=== PATIENT | female | born 1995 | race Asian ===

== ENCOUNTER 2016-12-16 11:36 | Emergency (ER) | payer OTHER ==
[~2016-12-16] VITALS: Ht 157.5 cm; Wt 47.5 kg
[~2016-12-16 11:36] MED LIST: DSS100 PO; IBUP-2070 PO; PERCT PO; PREN-64 PO
[2016-12-16] MEDS ORDERED: FAMOTIDINE 20 MG TABLET PO ONE (12:45)
[2016-12-16 12:55] VITALS: BP 104/68
[2016-12-16 13:00] LABS: BASOPHILS # (AUTO) 0.03 K/uL (0.00-0.20); BASOPHILS % (AUTO) 0.5 % (0.0-2.0); EOSINOPHILS # (AUTO) 0.38 K/uL (0.00-0.70); EOSINOPHILS % (AUTO) 7.28 % (1.0-6.0); HEMATOCRIT 45.4 % (36-46); LYMPHOCYTES # (AUTO) 1.8 K/uL (1.0-4.8); LYMPHOCYTES % (AUTO) 35.3 % (22.0-44.0); MEAN CORPUSCULAR HEMOGLOBIN 31.5 pg (26.0-34.0); MEAN CORPUSCULAR HGB CONC 33.1 G/dL (31.0-37.0); MEAN CORPUSCULAR VOLUME 95 fL (80-100); MONOCYTES # (AUTO) 0.3 K/uL (0.1-1.0); NEUTROPHILS # (AUTO) 2.7 K/uL (1.8-7.7); NEUTROPHILS % (AUTO) 51.9 % (40.0-70.0); PLATELET COUNT (AUTO) 151 K/uL (150-450); RED BLOOD CELL COUNT(AUTO) 4.77 MIL/uL (4.00-5.20); WHITE BLOOD COUNT (AUTO) 5.2 K/uL (4.5-11.0)
[2016-12-16 13:14] LABS: ANION GAP 11 mmol/L (8-16); CALCIUM, TOTAL 9.2 mg/dL (8.8-10.5); CARBON DIOXIDE 28 mmol/L (22-29); CHLORIDE 103 mmol/L (98-107); GLOMERULAR FILTR. RATE CALC > 60 mL/min (>60); POTASSIUM 3.6 mmol/L (3.5-5.1); SODIUM SERUM 142 mmol/L (136-145); UREA NITROGEN, BLOOD 10 mg/dL (7-18)
[2016-12-16 13:22] LABS: ALANINE AMINOTRANSFERASE 15 U/L (12-78); ALBUMIN 4.5 g/dL (3.4-5.0); ASPARTATE AMINOTRANSFERASE 16 U/L (15-37); BILIRUBIN,TOTAL 1.1 mg/dL (0.1-1.0); CREATINE KINASE, TOTAL 69 U/L (26-192); TOTAL PROTEIN, SERUM 7.6 g/dL (6.4-8.2)
== END 2016-12-16 13:37 | disposition left against medical advice (07) ==
LOC: EMS 11:38
DX: R10.13 Epigastric pain (principal)
CPT/HCPCS: 93005; 99285

== ENCOUNTER 2016-12-22 10:31 | Emergency (ER) | payer OTHER ==
[~2016-12-22] VITALS: Ht 157.5 cm; Wt 47.7 kg
[2016-12-22 11:06] LABS: BASOPHILS % (AUTO) 0.5 % (0.0-2.0); EOSINOPHILS % (AUTO) 1.6 % (1.0-6.0); HEMATOCRIT 44.3 % (36-46); HEMOGLOBIN 15.3 g/dL (12.0-16.0); LYMPHOCYTES # (AUTO) 1.7 K/uL (1.0-4.8); MEAN CORPUSCULAR HGB CONC 34.5 G/dL (31.0-37.0); MEAN CORPUSCULAR VOLUME 93 fL (80-100); MONOCYTES # (AUTO) 0.4 K/uL (0.1-1.0); MONOCYTES % (AUTO) 4.5 % (2.0-9.0); NEUTROPHILS # (AUTO) 5.5 K/uL (1.8-7.7); NEUTROPHILS % (AUTO) 71.4 % (40.0-70.0); PLATELET COUNT (AUTO) 202 K/uL (150-450); RED BLOOD CELL COUNT(AUTO) 4.78 MIL/uL (4.00-5.20); WHITE BLOOD COUNT (AUTO) 7.8 K/uL (4.5-11.0)
[2016-12-22 11:14] LABS: ANION GAP 19 mmol/L (8-16); CALCIUM, TOTAL 9.4 mg/dL (8.8-10.5); CARBON DIOXIDE 24 mmol/L (22-29); CHLORIDE 100 mmol/L (98-107); CREATININE 0.78 mg/dL (0.60-1.30); GLOMERULAR FILTR. RATE CALC > 60 mL/min (>60); POTASSIUM 3.3 mmol/L (3.5-5.1); SODIUM SERUM 143 mmol/L (136-145); UREA NITROGEN, BLOOD 14 mg/dL (7-18)
[2016-12-22 11:20] LABS: ALANINE AMINOTRANSFERASE 20 U/L (12-78); ALBUMIN 4.6 g/dL (3.4-5.0); AMYLASE 59 U/L (25-115); ASPARTATE AMINOTRANSFERASE 27 U/L (15-37); TOTAL PROTEIN, SERUM 7.9 g/dL (6.4-8.2)
[2016-12-22] MEDS ORDERED: SODIUM CHLORIDE 0.9% 1,000 ML IV ONE (12:30)
[2016-12-22] MEDS ORDERED: ONDANSETRON HCL 4 MG/2 ML VIAL IVP ONE (12:30)
[2016-12-22 14:59] LABS: APPEARANCE,URINE CLOUDY (CLEAR); GLUCOSE, URINE (UA) NEGATIVE (NEGATIVE); KETONES,URINE >=80 mg/dL (NEGATIVE); LEUKOCYTE ESTERASE ,URINE MODERATE (NEGATIVE); OCCULT BLOOD,URINE NEGATIVE (NEGATIVE); PROTEIN,URINE POS 1+ (NEGATIVE)
[2016-12-22 15:26] LABS: ADD UA MICROSCOPIC YES
[2016-12-22 15:28] LABS: RBC,URINE 0-2 /HPF (0-2); SQUAMOUS EPITHELIAL CELL,UR Few /LPF (None Seen); WBC,URINE 26-50 /HPF (0-5)
[2016-12-22 16:13] VITALS: BP 139/73
== END 2016-12-22 16:46 | disposition home or self-care (01) ==
LOC: EMS 10:32
DX: N39.0 Urinary tract infection, site not specified (principal)
CPT/HCPCS: 36415; 76700; 80053; 81001; 82150; 83690; 84703; 85025; 87086; 96361; 96374; 99285; J2405; J7030

== ENCOUNTER 2018-02-08 21:39 | Emergency (ER) | payer OTHER ==
[2018-02-09] MEDS ORDERED: PNV11TAB PO (01:33)
== END 2018-02-08 22:01 | disposition other institution (70) ==
LOC: EMS 21:40
DX: Z00.00 Encounter for general adult medical examination without abnormal findings (principal); Z53.21 Procedure and treatment not carried out due to patient leaving prior to being seen by health care provider

== ENCOUNTER 2018-02-08 22:11 | Observation (INO) | payer OTHER ==
[~2018-02-08] VITALS: Ht 160 cm; Wt 71.2 kg
[2018-02-09 00:09] VITALS: BP 116/71
[2018-02-09] MEDS ORDERED: PNV11TAB PO (01:33)
== END 2018-02-09 00:30 | disposition home or self-care (01) ==
LOC: 4S 22:31
PROVIDERS: ADMIT Obstetrics & Gynecology; ATTEND Obstetrics & Gynecology
DX: O42.92 Full-term premature rupture of membranes, unspecified as to length of time between rupture and onset of labor (principal); O62.9 Abnormality of forces of labor, unspecified; Z3A.37 37 weeks gestation of pregnancy
CPT/HCPCS: 59025; 89060